=== PATIENT | male | born 1980 | race American Indian/Alaskan Native ===

== ENCOUNTER 2019-04-27 00:16 | Emergency (ER) | payer OTHER ==
[2019-04-27] MEDS ORDERED: diphenhydrAMINE 50 MG/ML VIAL IV ONE (01:07)
[2019-04-27] MEDS ORDERED: dexAMETHasone 4 MG/ML VIAL IV ONE (01:07)
[2019-04-27] MEDS ORDERED: FAMOTIDINE 20 MG/2 ML INJ IV ONE (01:07)
[2019-04-27] MEDS ORDERED: SODIUM CHLORIDE 0.9% 1000 ML 1,000 ML IV ONE (01:08)
--- NOTE | 2019-04-27 01:41 | Emergency Department Report ---
ED General Adult HPI - General Chief complaint: Neck Pain/Injury Stated complaint: THROAT SWELLING Time Seen by Provider: 04/27/19 00:54 Source: patient Mode of arrival: Ambulatory Limitations: No Limitations - History of Present Illness Initial comments: Patient is a 38-year-old male who presents emergency room with complaints of swelling in the neck that began today. He denies any pain in the throat, difficulties swallowing, difficulty breathing, shortness of breath, nausea, vomiting, any other symptoms. Patient states that he took some ampicillin that he had left over from [place] and began experiencing the throat swelling after. pt states that he has taken this medication several times in the past with no issues. pt states he does not have an allergy to amoxicillin, he states that it made him nauseous before. - Related Data Previous Rx's Medication Instructions Recorded Last Taken Type oxyCODONE [roxiCODONE] 5 mg PO Q6HR PRN #20 tablet 04/17/15 Unknown Rx traMADoL [Ultram 50 MG tab] 50 mg PO Q4HR PRN #20 tablet 04/26/15 Unknown Rx Docusate Sodium [Colace CAP] 100 mg PO BID PRN #30 capsule 04/30/15 Unknown Rx Ferrous Sulfate [Feosol 325 MG tab] 325 mg PO TID #90 tablet 04/30/15 Unknown Rx Amoxicillin/Potassium Clav 1 each PO BID 7 Days #14 tablet 04/27/19 Unknown Rx [Augmentin 875-125 Tablet] Allergies Allergy/AdvReac Type Severity Reaction Status Date / Time amoxicillin Allergy Unknown Verified 04/26/15 11:16 aspirin Allergy Vomiting Verified 04/26/15 11:16 clindamycin Allergy Unknown Verified 04/26/15 11:16 magnesium Allergy Vomiting Verified 04/26/15 11:16 ED Review of Systems ROS: Stated complaint: THROAT SWELLING Other details as noted in HPI Comment: All other systems reviewed and negative ED Past Medical Hx - Past Medical History Previous Medical History?: Yes Additional medical history: h. pylori, iron deficiency anemia, PUD - Surgical History Additional Surgical History: hemorrhoid - Social History Smoking Status: Never Smoker Substance Use Type: None - Medications Home Medications: Home Medications Medication Instructions Recorded Confirmed Last Taken Type oxyCODONE [roxiCODONE] 5 mg PO Q6HR PRN #20 tablet 04/17/15 Unknown Rx traMADoL [Ultram 50 MG tab] 50 mg PO Q4HR PRN #20 tablet 04/26/15 Unknown Rx Docusate Sodium [Colace CAP] 100 mg PO BID PRN #30 capsule 04/30/15 Unknown Rx Ferrous Sulfate [Feosol 325 MG tab] 325 mg PO TID #90 tablet 04/30/15 Unknown Rx Amoxicillin/Potassium Clav 1 each PO BID 7 Days #14 tablet 04/27/19 Unknown Rx [Augmentin 875-125 Tablet] ED Physical Exam - General Limitations: No Limitations General appearance: alert, in no apparent distress - Head Head exam: Present: atraumatic, normocephalic - Eye Eye exam: Present: normal appearance - ENT ENT exam: Present: normal orophraynx, mucous membranes moist, TM's normal bilaterally, normal external ear exam, other (small amount of edema to the bilateral submandibular glands, no erythema, no TTP, no TTP underneath the tongue, uvula is midline, no uvular edema, no tonsillar hypertrophy or exudates) - Respiratory Respiratory exam: Present: normal lung sounds bilaterally. Absent: respiratory distress, wheezes, rales, rhonchi, stridor, chest wall tenderness, accessory muscle use, decreased breath sounds, prolonged expiratory - Cardiovascular Cardiovascular Exam: Present: regular rate, normal rhythm, normal heart sounds. Absent: systolic murmur, diastolic murmur, rubs, gallop - Neurological Exam Neurological exam: Present: alert, oriented X3 - Psychiatric Psychiatric exam: Present: normal affect, normal mood - Skin Skin exam: Present: warm, dry, intact ED Course Vital Signs 04/27/19 04/27/19 00:23 03:06 Temperature 98.3 F 98.8 F Pulse Rate 95 H 87 Respiratory 16 18 Rate Blood Pressure 141/96 Blood Pressure 138/94 [Left] O2 Sat by Pulse 99 100 Oximetry ED Medical Decision Making - Medical Decision Making Patient is a 38-year-old male who presents emergency room with complaints of swelling in the neck that began today. He denies any pain in the throat, difficulties swallowing, difficulty breathing, shortness of breath, nausea, vomiting, any other symptoms. Patient states that he took some ampicillin that he had left over from [place] and began experiencing the throat swelling after. pt states that he has taken this medication several times in the past with no issues. pt states he does not have an allergy to amoxicillin, he states that it made him nauseous before. vitals are stable. pt is afebrile. on exam: small amount of edema to the bilateral submandibular glands, no erythema, no TTP, no TTP underneath the tongue, uvula is midline, no uvular edema, no tonsillar hypertrophy or exudates, breath sounds are clear bilaterally, no w/r/r, no stridor. No clinical signs of angioedema, Eros angina, or airway obstruction. Examination consistent with sialadenitis. Patient given prescription for Augmentin. advised pt to please take medication as prescribed. please increase your water intake. suck on lemon drops or vitamin C lozenges. Follow up with a primary care doctor in the next 2 days for reexamination. Listed two providers below. Return to the emergency room for any new or worsening symptoms. Also di scussed with patient to not take medications that are not prescribed by a licensed healthcare professional. discussed with pt to discontinue taking the ampicillin. - Differential Diagnosis angioedema, tonsillitis, pharyngitis, sialadenitis, ludwigs, allergic rxn Critical care attestation.: If time is entered above; I have spent that time in minutes in the direct care of this critically ill patient, excluding procedure time. ED Disposition Clinical Impression: Sialadenitis Disposition: DC-01 TO HOME OR SELFCARE Is pt being admited?: No Does the pt Need Aspirin: No Condition: Stable Instructions: Sialoadenitis (ED) Additional Instructions: Please take medication as prescribed. please increase your water intake. suck on lemon drops or vitamin C lozenges. Follow up with a primary care doctor in the next 2 days for reexamination. Listed two providers below. Return to the emergency room for any new or worsening symptoms. Prescriptions: Amoxicillin/Potassium Clav [Augmentin 875-125 Tablet] 1 each PO BID 7 Days #14 tablet Referrals: [facility] [Provider Group] - 2-3 Days BARTOLO ROSARIO MD [Staff Physician] - 2-3 Days Time of Disposition: 02:40 Print Language: MALIAN
[2019-04-27 03:07] VITALS: BP 138/94
== END 2019-04-27 03:10 | disposition home or self-care (01) ==
LOC: ED 00:16
DX: K11.20 Sialoadenitis, unspecified (principal); D50.9 Iron deficiency anemia, unspecified; Z98.890 Other specified postprocedural states; Z79.2 Long term (current) use of antibiotics; Z79.899 Other long term (current) drug therapy; Z88.1 Allergy status to other antibiotic agents; Z88.6 Allergy status to analgesic agent; Z88.8 Allergy status to other drugs, medicaments and biological substances
CPT/HCPCS: 96374; 96375; 99282; J1100; J1200; J7030